=== PATIENT | male | born 1970 | race Caucasian/White ===

== ENCOUNTER 2017-02-16 16:40 | Emergency (ER) | payer SELFPAY ==
[~2017-02-16] VITALS: Ht 182.9 cm; Wt 92.5 kg
[2017-02-16] MEDS ORDERED: ONDANSETRON PF 4 MG/2 ML VIAL. IV ONE (17:15)
[2017-02-16] MEDS ORDERED: IV NORMAL SALINE 1000ML BAG 1,000 ML IV ONE (17:15)
[2017-02-16] MEDS: fentaNYL PF VIAL 100 MCG/2 ML VIAL IV PRN ×2 (17:36→18:53)
[2017-02-16 17:38] LABS: BASO % 1 % (0-3); EOS % 3 % (0-3); HEMATOCRIT 43.8 % (39.0-53.0); HEMOGLOBIN 14.9 g/dL (13.0-17.5); LYMPH # 1.9 x10^3/uL (1.0-4.8); LYMPH % 30 % (24-48); MEAN CORPUSCULAR HEMOGLOBIN 29 pg (25-35); MEAN CORPUSCULAR HGB CONC 34 g/dL (31-37); MEAN CORPUSCULAR VOLUME 86 fL (79-100); MONO % 10 % (0-9); NEUT % 57 % (31-73); PLATELET COUNT 205 x10^3/uL (140-400); RED BLOOD COUNT 5.11 x10^6/uL (4.30-5.70); RED CELL DISTRIBUTION WIDTH 17.9 % (11.5-14.5); WHITE BLOOD COUNT 6.3 x10^3/uL (4.0-11.0)
[2017-02-16 17:40] LABS: BILIRUBIN,URINE NEGATIVE (NEG); GLUCOSE,URINE NEGATIVE (NEG); NITRITE,URINE NEGATIVE (NEG); PH,URINE 5.5; PROTEIN,URINE NEGATIVE (NEG-TRACE); UROBILINOGEN,URINE 0.2 mg/dL (0.2 mg/dL)
[2017-02-16] MEDS ORDERED: IOHEXOL 300 MG/ML 75 ML VIAL IV ONE (17:45)
[2017-02-16 17:49] LABS: CALCIUM 8.7 mg/dL (8.5-10.1); CREATININE 1.1 mg/dL (0.7-1.3); GFR 72.4; POTASSIUM 3.9 mmol/L (3.5-5.1)
[2017-02-16 17:53] LABS: BACTERIA,URINE 0 /HPF (0-FEW); RBC,URINE 0 /HPF (0-2); SQUAMOUS EPITHELIAL CELL,UR OCC /LPF; WBC,URINE 0 /HPF (0-4)
[2017-02-16 17:55] LABS: ALBUMIN 3.7 g/dL (3.4-5.0); TOTAL BILIRUBIN 0.6 mg/dL (0.2-1.0); TOTAL PROTEIN 7.3 g/dL (6.4-8.2)
--- NOTE | 2017-02-16 18:59 | RAD ---
CT scan of the abdomen and pelvis with contrast 02/16/2017 CLINICAL HISTORY: Lower abdominal pain. TECHNIQUE: After the intravenous administration of 75 cc of Omnipaque 300 only, contiguous, 5 mm axial sections were obtained through the abdomen and pelvis. One or more of the following individualized dose reduction techniques were utilized for this study: 1. Automated exposure control. 2. Adjustment of the mA and/or kV according to patient size. 3. Use of iterative reconstruction technique. FINDINGS: Images through the lung bases demonstrate minimal dependent subsegmental atelectasis bilaterally. The liver, spleen, pancreas, and adrenal glands are within normal limits. Mild atrophy of the right kidney is seen. A 1 cm low-attenuation lesion is seen involving the lateral aspect of the mid/lower pole of the left kidney. This likely represents a cyst. The abdominal aorta tapers normally. The gallbladder is contracted. No free fluid or free air is seen within the abdomen. There is no evidence of bowel obstruction. The appendix is well-visualized and is within normal limits. There is a small fat-containing umbilical hernia which measures 2.7 cm in size. Images through the pelvis demonstrate the urinary bladder distended with urine. Multiple diverticula are seen involving the sigmoid colon. No free fluid is seen. Degenerative changes are seen involving lower thoracic and lower lumbar spine. IMPRESSION: No acute abnormality is seen. Electronically signed by: Peyman Sweeney MD (02/16/2017 6:55 PM) [employer]
[2017-02-16 19:19] VITALS: BP 136/92
[2017-02-16 19:19] LABS: NEG OBC FOB NEG; POS OBC FOB POS
[2017-02-16] MEDS ORDERED: ONDA4TAB10 SL (19:33)
[2017-02-16] MEDS ORDERED: OMEP20CA9 PO (19:33)
--- NOTE | 2017-02-16 19:33 | PHYS DOC ---
Past Medical History Past Medical History: No Pertinent History Past Surgical History: No Surgical History Alcohol Use: Occasionally Drug Use: None Adult General Chief Complaint Chief Complaint: ABDOMINAL PAIN HPI HPI Patient is a 46 year old male who presents with abdominal pain. The patient reports onset of pain yesterday to lower abdomen. He states pain is sharp & severe to bilateral lower quadrants greatest in RLQ. He also has burning epigastric pain. He reports vomiting x 2, diarrhea x 2 with small amount of blood in stools today. Denies fevers or chills, hematemesis, melena, dysuria or hematuria. Denies previous history of similar pain. No significant past medical history, no abdominal surgeries. Review of Systems Review of Systems Constitutional: Denies fever or chills HENT: Denies nasal congestion or sore throat Respiratory: Denies cough or shortness of breath Cardiovascular: Denies chest pain or edema GI: Reports abdominal pain, nausea, vomiting, bloody stools & diarrhea : Denies dysuria or hematuria Musculoskeletal: Denies back pain or joint pain Integument: Denies rash or skin lesions Neurologic: Denies headache, focal weakness or sensory changes Current Medications Current Medications Current Medications Medications (Trade) Dose Ordered Sig/Raman Start Time Stop Time Status Last Admin Dose Admin Fentanyl Citrate (Fentanyl 2ml Vial) 50 mcg PRN Q15MIN PRN 02/16/17 17:15 02/16/17 19:57 DC 02/16/17 18:53 50 MCG Iohexol (Omnipaque 300 Mg/ml) 75 ml 1X ONCE 02/16/17 17:45 02/16/17 17:46 DC 02/16/17 17:45 75 ML Ondansetron HCl (Zofran) 4 mg 1X ONCE 02/16/17 17:15 02/16/17 17:16 DC 02/16/17 17:35 4 MG Sodium Chloride 1,000 ml @ 1,000 mls/hr 1X ONCE 02/16/17 17:15 02/16/17 18:14 DC 02/16/17 17:35 1,000 MLS/HR Allergies Allergies Allergies Coded Allergies Type Severity Reaction Last Updated Verified No Known Drug Allergies 02/16/17 No Physical Exam Physical Exam Constitutional: Well developed, well nourished, no acute distress, non-toxic appearance. HENT: Normocephalic, atraumatic, bilateral external ears normal, oropharynx moist, nose normal. Eyes: conjunctiva normal, no discharge. Neck: supple, no stridor. Cardiovascular: RRR, no murmurs, no edema. Lungs & Thorax: LCTAB, no wheezing, no respiratory distress. Abdomen: soft, diffuse lower abdominal tenderness greatest in the right lower quadrant, no masses or pulsatile masses, no rebound or guarding, nondistended. Skin: Warm, dry, no erythema, no rash. Back: No CVA tenderness. Extremities: No tenderness, no edema. Neurologic: Alert and oriented X 3, no focal deficits noted. Psychologic: Affect normal, judgement normal, mood normal. Current Patient Data Vital Signs Vital Signs Date Time Temp Pulse Resp B/P (MAP) Pulse Ox O2 Delivery O2 Flow Rate FiO2 02/16/17 19:19 82 19 136/92 (107) 99 Room Air 02/16/17 16:52 98.2 98.2 Lab Values Laboratory Tests Test 02/16/17 16:52 02/16/17 17:20 02/16/17 19:05 Urine Collection Type Void Urine Color Yellow Urine Clarity Clear Urine pH 5.5 Urine Specific Jackson 1.025 Urine Protein Negative mg/dL (NEG-TRACE) Urine Glucose (UA) Negative mg/dL (NEG) Urine Ketones (Stick) Negative mg/dL (NEG) Urine Blood Negative (NEG) Urine Nitrite Negative (NEG) Urine Bilirubin Negative (NEG) Urine Urobilinogen Dipstick 0.2 mg/dL (0.2 mg/dL) Urine Leukocyte Esterase Negative (NEG) Urine RBC 0 /HPF (0-2) Urine WBC 0 /HPF (0-4) Urine Squamous Epithelial Cells Occ /LPF Urine Bacteria 0 /HPF (0-FEW) Urine Hyaline Casts Occasional /HPF Urine Mucus Marked /LPF White Blood Count 6.3 x10^3/uL (4.0-11.0) Red Blood Count 5.11 x10^6/uL (4.30-5.70) Hemoglobin 14.9 g/dL (13.0-17.5) Hematocrit 43.8 % (39.0-53.0) Mean Corpuscular Volume 86 fL (79-100) Mean Corpuscular Hemoglobin 29 pg (25-35) Mean Corpuscular Hemoglobin Concent 34 g/dL (31-37) Red Cell Distribution Width 17.9 % (11.5-14.5) H Platelet Count 205 x10^3/uL (140-400) Neutrophils (%) (Auto) 57 % (31-73) Lymphocytes (%) (Auto) 30 % (24-48) Monocytes (%) (Auto) 10 % (0-9) H Eosinophils (%) (Auto) 3 % (0-3) Basophils (%) (Auto) 1 % (0-3) Neutrophils # (Auto) 3.6 x10^3uL (1.8-7.7) Lymphocytes # (Auto) 1.9 x10^3/uL (1.0-4.8) Monocytes # (Auto) 0.6 x10^3/uL (0.0-1.1) Eosinophils # (Auto) 0.2 x10^3/uL (0.0-0.7) Basophils # (Auto) 0.0 x10^3/uL (0.0-0.2) Sodium Level 142 mmol/L (136-145) Potassium Level 3.9 mmol/L (3.5-5.1) Chloride Level 107 mmol/L (98-107) Carbon Dioxide Level 28 mmol/L (21-32) Anion Gap 7 (6-14) Blood Urea Nitrogen 14 mg/dL (8-26) Creatinine 1.1 mg/dL (0.7-1.3) Estimated GFR (Cockcroft-Gault) 72.4 BUN/Creatinine Ratio 13 (6-20) Glucose Level 91 mg/dL (70-99) Lactic Acid Level 1.5 mmol/L (0.4-2.0) Calcium Level 8.7 mg/dL (8.5-10.1) Total Bilirubin 0.6 mg/dL (0.2-1.0) Aspartate Amino Transferase (AST) 25 U/L (15-37) Alanine Aminotransferase (ALT) 32 U/L (16-63) Alkaline Phosphatase 73 U/L (46-116) Total Protein 7.3 g/dL (6.4-8.2) Albumin 3.7 g/dL (3.4-5.0) Albumin/Globulin Ratio 1.0 (1.0-1.7) Lipase 207 U/L (73-393) Stool Occult Blood Negative (NEG) Laboratory Tests 02/16/17 17:20 Laboratory Tests 02/16/17 17:20 EKG EKG [] Radiology/Procedures Radiology/Procedures PROCEDURE: CT ABD PELV W/ IV CONTRST ONLY CT scan of the abdomen and pelvis with contrast 02/16/2017 CLINICAL HISTORY: Lower abdominal pain. TECHNIQUE: After the intravenous administration of 75 cc of Omnipaque 300 only, contiguous, 5 mm axial sections were obtained through the abdomen and pelvis. One or more of the following individualized dose reduction techniques were utilized for this study: 1. Automated exposure control. 2. Adjustment of the mA and/or kV according to patient size. 3. Use of iterative reconstruction technique. FINDINGS: Images through the lung bases demonstrate minimal dependent subsegmental atelectasis bilaterally. The liver, spleen, pancreas, and adrenal glands are within normal limits. Mild atrophy of the right kidney is seen. A 1 cm low-attenuation lesion is seen involving the lateral aspect of the mid/lower pole of the left kidney. This likely represents a cyst. The abdominal aorta tapers normally. The gallbladder is contracted. No free fluid or free air is seen within the abdomen. There is no evidence of bowel obstruction. The appendix is well-visualized and is within normal limits. There is a small fat-containing umbilical hernia which measures 2.7 cm in size. Images through the pelvis demonstrate the urinary bladder distended with urine. Multiple diverticula are seen involving the sigmoid colon. No free fluid is seen. Degenerative changes are seen involving lower thoracic and lower lumbar spine. IMPRESSION: No acute abnormality is seen. Electronically signed by: Peyman Sweeney MD (02/16/2017 6:55 PM) [facility] DICTATED and SIGNED BY: PEYMAN SWEENEY MD DATE: 02/16/171849 [] Course & Med Decision Making Course & Med Decision Making Pertinent Labs and Imaging studies reviewed. (See chart for details) The patient presents with abdominal pain greatest in the right lower quadrant. Gave IV fluids, pain medication, antiemetics. His pain improved. Obtained labs, UA, CT of the abdomen and pelvis. No significant abnormality was identified; specifically, the appendix was well-visualized and normal in appearance. He had reported blood in his stools but Hemoccult was negative here. Recommend supportive care with rest, by mouth hydration, give Zofran for nausea and omeprazole for abdominal pain. Recommend follow-up with Dr. Borges in GI clinic or with primary care physician in 2-3 days. Return to the emergency department for high fever, severe pain, uncontrolled vomiting, large volume of lead in emesis or stools, any otherwise worsening condition. Discharged home in stable and improved condition. [] Dragon Disclaimer Dragon Disclaimer This electronic medical record was generated, in whole or in part, using a voice recognition dictation system. Departure Departure Impression: Primary Impression: Abdominal pain Disposition: HOME, SELF-CARE Condition: IMPROVED Referrals: NON,STAFF (PCP) DANIELLE BORGES MD Patient Instructions: Abdominal Pain, [id number] Additional Instructions: You were seen in the emergency department today for abdominal pain. Labs and CT did not show a serious cause of your symptoms. The stool tests here did not show blood. Please rest, drink fluids to stay hydrated. Take Zofran for nausea. Follow-up with Dr. Borges in the GI clinic within one week. Return to the emergency department for high fever, severe pain, uncontrolled vomiting, blood in vomit, any otherwise worsening condition. Scripts Omeprazole (OMEPRAZOLE) 20 Mg Capsule. 20 MG PO DAILY for 14 Days, #14 CAP Prov: HANNA العراقي MD 02/16/17 Ondansetron (ZOFRAN ODT) 4 Mg Tab.rapdis 1 TAB SL Q8HRS, #10 TAB Prov: HANNA العراقي MD 02/16/17 HANNA العراقي MD Feb 16, 2017 19:33
== END 2017-02-16 19:54 | disposition home or self-care (01) ==
LOC: ER 16:40
DX: R10.31 Right lower quadrant pain (principal); R10.13 Epigastric pain; R11.2 Nausea with vomiting, unspecified; R19.7 Diarrhea, unspecified; R10.32 Left lower quadrant pain; K92.1 Melena
CPT/HCPCS: 36415; 74177; 80053; 81001; 82274; 83605; 83690; 85025; 96361; 96374; 96375; 96376; 99285; J2405; J3010; J7030; Q9967